=== PATIENT | female | born 1975 | race Two or more races ===

== ENCOUNTER 2019-06-17 10:06 | Emergency (ER) | payer MEDICAID ==
[~2019-06-17] VITALS: Ht 152.4 cm; Wt 56.7 kg
[2019-06-17 10:40] VITALS: BP 116/71
[2019-06-17 10:43] LABS: Basophils # (auto) 0 uL; Basophils % (auto) 0.2 % (0.0-2.0); Eosinophils # (auto) 0.1 uL; Eosinophils % (auto) 0.7 % (0.0-7.0); Hematocrit 38.2 % (36.0-46.0); Hemoglobin 12.6 g/dL (12.2-16.2); Lymphocytes % (auto) 18.2 % (10.0-50.0); Mean Corpuscular Hemoglobin 27.2 pg (28.0-32.0); Mean Corpuscular Hgb Conc. 33.1 g/dL (32.0-36.0); Mean Corpuscular Volume 82.2 fL (80.0-100.0); Monocytes # (auto) 0.7 uL; Monocytes % (auto) 6.3 % (0.0-12.0); Neutrophils # (auto) 8.4 uL; Neutrophils % (auto) 74.6 % (37.0-80.0); Platelet Count (auto) 337 10^3/uL (140-450); Red Blood Cells 4.64 10^6/uL (4.0-5.20); Red Cell Distribution Width 13.3 % (11.8-14.3); White Blood Cell 11.2 10^3/uL (4.4-10.8)
[2019-06-17 10:44] LABS: Urine WBC None Seen /hpf (0 - 5)
[2019-06-17 10:59] LABS: Urine Bacteria NONE SEEN /hpf (None Seen); Urine Blood Negative /uL (Negative); Urine Specific Gravity 1.035 (1.001-1.035)
[2019-06-17] MEDS ORDERED: KETOROLAC TROMETH 60MG/2ML VIAL IM ONE (11:00)
[2019-06-17 11:02] LABS: Albumin 2.9 g/dL (3.4-5.0); Calcium 8.3 mg/dL (8.5-10.1); Potassium 3.8 mmol/L (3.5-5.1)
[2019-06-17 11:06] LABS: BUN/Creatinine Ratio 32.1; Bilirubin, Total 0.4 mg/dL (0.2-1.0)
[2019-06-17] MEDS ORDERED: SODIUM CHLORIDE 0.9% 1,000 ML IV ONE (11:14)
[2019-06-17] MEDS ORDERED: InsuLIN REG 1unit/0.01ml Soln (100units/ml) IV ONE (11:30)
[2019-06-17] MEDS ORDERED: InsuLIN REG 1unit/0.01ml Soln (100units/ml) ONE (11:30)
[2019-06-17] MEDS ORDERED: KETOROLAC TROMETH 30 MG/ML 1ML VIAL IV ONE (11:30)
[2019-06-17] MEDS ORDERED: cefTRIAXone 1GM/50ML D5W 50 ML IV ONE (11:45)
== END 2019-06-17 12:28 | disposition home or self-care (01) ==
LOC: ER 10:06
DX: J32.9 Chronic sinusitis, unspecified (principal); N39.0 Urinary tract infection, site not specified; E11.9 Type 2 diabetes mellitus without complications
CPT/HCPCS: 36415; 70450; 70486; 80053; 81001; 82962; 85025; 96365; 96375; 99284; J0696; J1815; J1885; J7030